=== PATIENT | female | born 1965 | race Caucasian/White ===

== ENCOUNTER 2017-02-10 10:26 | Emergency (ER) | payer MEDICAID ==
[~2017-02-10] VITALS: Ht 167.6 cm; Wt 73.0 kg
[2017-02-10 10:34] VITALS: BP 127/77
== END 2017-02-10 11:19 | disposition home or self-care (01) ==
LOC: ED 11:03
DX: J02.8 Acute pharyngitis due to other specified organisms (principal); S39.012A Strain of muscle, fascia and tendon of lower back, initial encounter; J45.909 Unspecified asthma, uncomplicated; X58.XXXA Exposure to other specified factors, initial encounter; Y93.89 Activity, other specified; Y99.8 Other external cause status; Y92.89 Other specified places as the place of occurrence of the external cause
CPT/HCPCS: 99283

== ENCOUNTER 2017-03-04 18:14 | Emergency (ER) | payer MEDICAID ==
[~2017-03-04] VITALS: Ht 167.6 cm; Wt 74.0 kg
[2017-03-04] MEDS ORDERED: ATOR10TA9 PO (18:58)
[2017-03-04] MEDS ORDERED: FLUT100B INH (18:58)
[2017-03-04] MEDS ORDERED: DIPH,PERTUSS(ACELL),TET VAC/PF 0.5 ML IM-VACC ONE (19:00)
[2017-03-04] MEDS ORDERED: ACETAMINOPHEN 325 MG TABLET PO ONE (19:00)
[2017-03-04] MEDS ORDERED: BACITRACIN ZINC OINT 500U/GM, 0.9 GM ONE (19:24)
[2017-03-04] MEDS ORDERED: ACETAMINOPHEN 325 MG TABLET ONE (19:33)
[2017-03-04 20:58] VITALS: BP 125/67
== END 2017-03-04 21:03 | disposition home or self-care (01) ==
LOC: ED 19:52
DX: S06.9X1A Unspecified intracranial injury with loss of consciousness of 30 minutes or less, initial encounter (principal); S16.1XXA Strain of muscle, fascia and tendon at neck level, initial encounter; S80.02XA Contusion of left knee, initial encounter; S29.012A Strain of muscle and tendon of back wall of thorax, initial encounter; E78.5 Hyperlipidemia, unspecified; Z90.710 Acquired absence of both cervix and uterus; W19.XXXA Unspecified fall, initial encounter; Y93.89 Activity, other specified; Y92.830 Public park as the place of occurrence of the external cause; Y99.8 Other external cause status
CPT/HCPCS: 70450; 72072; 72125; 99284

== ENCOUNTER 2017-06-04 19:22 | Emergency (ER) | payer MEDICAID ==
[~2017-06-04] VITALS: Ht 170.2 cm; Wt 73.0 kg
[~2017-06-04 19:22] MED LIST: ATOR10TA9 PO; FLUT100B INH
[2017-06-04 19:24] VITALS: BP 133/80
== END 2017-06-04 20:40 | disposition home or self-care (01) ==
LOC: ED 20:25
DX: J01.00 Acute maxillary sinusitis, unspecified (principal); J45.909 Unspecified asthma, uncomplicated; E78.5 Hyperlipidemia, unspecified
CPT/HCPCS: 71020; 99284

== ENCOUNTER 2019-08-13 21:36 | Emergency (ER) | payer MEDICAID ==
[~2019-08-13] VITALS: Ht 167.6 cm; Wt 68.0 kg
[2019-08-13 21:38] VITALS: BP 166/80
--- NOTE | 2019-08-13 21:51 | NUR ---
ice to ankle. xray in room with patient
== END 2019-08-13 22:47 ==
LOC: ED 22:30
DX: S93.491A Sprain of other ligament of right ankle, initial encounter (principal); E78.5 Hyperlipidemia, unspecified; J45.909 Unspecified asthma, uncomplicated; W01.0XXA Fall on same level from slipping, tripping and stumbling without subsequent striking against object, initial encounter; Y93.89 Activity, other specified; Y92.009 Unspecified place in unspecified non-institutional (private) residence as the place of occurrence of the external cause; Y99.8 Other external cause status
CPT/HCPCS: 99283